=== PATIENT | male | born 1965 | race Caucasian/White ===

== ENCOUNTER → 2019-04-16 | Outpatient (CLI) | payer BC, OTHER ==
[2019-04-16 13:33] VITALS: BP 119/76
[2019-04-16 14:02] LABS: HEMATOCRIT 43.4 % (42.0-52.0); HEMOGLOBIN 14.1 gm/dL (14.0-18.0)
[2019-04-16 14:23] VITALS: BP 125/78
--- NOTE | 2019-04-16 16:24 | NUR ---
IN FOR THERAPEUTIC PHLEBOTOMY FOR POLYCYTHEMIA. HCT 43.4. THERAPEUTIC PHLEBOTOMY DONE VIA RAC. REMOVED 1 UNIT BLOOD. PATIENT TOLERATED WELL. POST VITAL SIGNS GOOD. PATIENT WOULD NOT EAT A SNACK IN CLINIC STATING HE HAD A SNACK AND A DRINK IN THE CAR AND HE WOULD EAT THAT. OBSERVED FOR 15 MINUTES AND THEN DISMISSED IN GOOD CONDITION. TO RETURN IN 2 MONTHS.
== END ==
LOC: OPONC 01:51
DX: E29.1 Testicular hypofunction (principal); D75.1 Secondary polycythemia; E03.9 Hypothyroidism, unspecified
CPT/HCPCS: 95100

== ENCOUNTER → 2019-06-18 | Outpatient (CLI) | payer BC, OTHER ==
[2019-06-18 12:51] VITALS: BP 138/94
[2019-06-18 12:54] LABS: HEMATOCRIT 43.1 % (42.0-52.0)
[2019-06-18 14:10] VITALS: BP 140/98
--- NOTE | 2019-06-18 14:25 | NUR ---
IN FOR Q2 MONTH THERAPEUTIC PHLEBOTOMY FOR POLYCYTHEMIA. AFTER 2 ATTEMPTS, IV TEAM WAS CONSULTED AND CAME AND PERFORMED PHLEBOTOMY WITH ASSIST FROM THIS RN. REMOVED ONE UNIT. HAD SLOW FLOW AND TOOK 15 MINUTES TO GET 1 UNIT. POST BLOOD PRESSURE 140/96. PATIENT VERY UPSET THAT IT TOOK 3 ATTEMPTS. MADE PLANS TO CONSULT IV TEAM TO PLACE NEEDLE FROM NOW ON. PATIENT REFUSED SNACK OR DRINK POST PHLEBOTOMY. SCHEDULED TO RETURN IN 2 MONTHS. DISMISSED IN STABLE CONDITION.
== END ==
LOC: OPONC 02:28
DX: D75.1 Secondary polycythemia (principal); E03.9 Hypothyroidism, unspecified; E29.1 Testicular hypofunction
CPT/HCPCS: 95100

== ENCOUNTER → 2019-11-22 | Outpatient (CLI) | payer BC, OTHER ==
[2019-11-22 13:30] VITALS: BP 135/83
[2019-11-22 13:31] LABS: HEMATOCRIT 43.5 % (42.0-52.0); HEMOGLOBIN 14.2 gm/dL (14.0-18.0)
[2019-11-22 14:20] VITALS: BP 130/81
--- NOTE | 2019-11-22 14:42 | NUR ---
IN FOR [id number] THERAPEUTIC PHLEBOTOMY. HCT 43.5. IV TEAM ASSISTED WITH PHLEBOTOMY PATIENT IS A HARD STICK. AFTER 2 STICKS WAS ABLE TO COLLECT 500ML BLOOD. PATIENT TOLERATED WELL. DRANK SOME WATER AND STATED HE HAD SOME FOOD IN HIS CAR AND WOULD EAT THEN. POST BP GOOD. DENIED DIZZINESS/WEAKNESS. TO RETURN IN 2MONTHS. DISMISSED IN GOOD CONDITION.
== END ==
LOC: OPONC 13:06
DX: D75.1 Secondary polycythemia (principal); E29.1 Testicular hypofunction; E03.9 Hypothyroidism, unspecified
CPT/HCPCS: 95100

== ENCOUNTER → 2020-02-18 | Outpatient (CLI) | payer BC, OTHER ==
[2020-02-18 11:30] VITALS: BP 124/78
[2020-02-18 11:59] LABS: HEMATOCRIT 39.8 % (42.0-52.0); HEMOGLOBIN 12.9 gm/dL (14.0-18.0)
[2020-02-18 12:40] VITALS: BP 129/78
--- NOTE | 2020-02-18 13:59 | NUR ---
IN FOR THERAPEUTIC PHLEBOTOMY FOR POLYCYTHEMIA SECONDARY TO TESTOSTERONE REPLACEMENT. HCT 39.8. IV TEAM PLACED PHLEBOTOMY NEEDLE AND ABLE TO WITHDRAW 1 UNIT BLOOD. PATIENT TOLERATED WELL. DRANK SOME ORANGE JUICE. OBSERVED FOR 30 MINUTES. POST BP GOOD. DENIED DIZZINESS/WEAKNESS. DISMISSED IN GOOD CONDITION.
== END ==
LOC: OPONC 09:40
PROVIDERS: ATTEND Family Medicine
DX: E29.1 Testicular hypofunction (principal); D75.1 Secondary polycythemia; E03.9 Hypothyroidism, unspecified
CPT/HCPCS: 95100

== ENCOUNTER → 2020-04-16 | Outpatient (CLI) | payer BC, OTHER ==
[2020-04-16 11:43] VITALS: BP 141/72
[2020-04-16 11:43] LABS: HEMATOCRIT 38.8 % (42.0-52.0); HEMOGLOBIN 12.7 gm/dL (14.0-18.0)
[2020-04-16 12:15] VITALS: BP 130/78
--- NOTE | 2020-04-16 13:44 | NUR ---
IN FOR [id number] THERAPEUTIC PHLEBOTOMY FOR POLYCYTHEMIA. H&H DRAWN AND HCT 38.8. THERAPEUTIC PHLEBOTOMY DONE PER STANDING ORDER TO HOLD IF HCT LESS THAN 38. IV TEAM PLACED NEEDLE PATIENT IS A VERY HARD STICK. 1 UNIT BLOOD REMOVED. PATIENT TOLERATED WELL. OBSERVED FOR 15 MINUTES AND DRANK SOME COFFEE. POST BP GOOD. NEXT APPT SCHEDULED FOR . DISMISSED IN GOOD CONDITION.
== END ==
LOC: OPONC 10:58
DX: D75.1 Secondary polycythemia (principal); E29.1 Testicular hypofunction; E03.9 Hypothyroidism, unspecified
CPT/HCPCS: 95100

== ENCOUNTER → 2020-10-08 | Outpatient (CLI) | payer BC, OTHER ==
[~2020-10-08] MED LIST: VENLAFAXINE HCL75 M1 PO
[2020-10-08 13:12] LABS: HEMATOCRIT 40.5 % (42.0-52.0); HEMOGLOBIN 12.4 gm/dL (14.0-18.0)
[2020-10-08 13:17] VITALS: BP 128/71
[2020-10-08 13:40] VITALS: BP 122/78
--- NOTE | 2020-10-08 14:21 | NUR ---
IN FOR THERAPEUTIC PHLEBOTOMY FOR POLYCYTHEMIA. PATIENT STATED FEELING WELL. H&H DRAWN. HCT 40.5. THERAPEUTIC PHLEBOTOMY DONE PER PARAMETERS ON ORDER. SCALE CALIBRATED AND ZEROED PRIOR TO PHLEBOTOMY. IV TEAM REZA PLACED NEEDLE USING US MACHINE PATIENT IS A HARD STICK. REMOVED VIA BLOOD BAG 525 GM/500ML. PATIENT TOLERATED WELL. VITAL SIGNS STABLE. SCHEDULED TO RETURN ON DECEMBER 03 AT 1 PM FOR THE SAME. DISMISSED IN GOOD CONDITION.
== END ==
LOC: OPONC 09:04
DX: D75.1 Secondary polycythemia (principal)
CPT/HCPCS: 95100